=== PATIENT | male | born 1990 | race Caucasian/White ===

== ENCOUNTER 2025-07-20 10:55 | Emergency (ER) | payer MEDICAID ==
[~2025-07-20] VITALS: Ht 172.7 cm; Wt 104.0 kg
[2025-07-20 11:07] VITALS: O2SAT 99
[2025-07-20 11:09] VITALS: BP 138/85; PULSE 116; RESP 16; TEMP 36.7; O2SAT 96
== END 2025-07-20 11:58 | disposition left against medical advice (07) ==
LOC: ER 10:55
DX: R11.2 Nausea with vomiting, unspecified (principal); R51.9 Headache, unspecified; F31.9 Bipolar disorder, unspecified; Z53.21 Procedure and treatment not carried out due to patient leaving prior to being seen by health care provider